=== PATIENT | female | born 1955 | race Caucasian/White ===

== ENCOUNTER 2018-08-26 07:27 | Day surgery (SDC) | payer OTHER ==
[~2018-08-26 07:27] MED LIST: ASA81 MG PO; CYMBALTA60 MG PO; LORAZEPAM0.5 MG PO; LOSARTAN-HCTZ1 EACH PO; OMEPRAZOLE40 MG PO; TRAZODONE HCL100 MG PO
[2018-08-26] MEDS ORDERED: ULTRACET PO (10:43)
[2018-08-26] MEDS ORDERED: MACROBID 100 M100 MG PO (10:43)
== END 2018-08-26 13:35 | disposition home or self-care (01) ==
LOC: CIR.AMB 07:27
DX: N81.5 Vaginal enterocele (principal); N81.6 Rectocele